=== PATIENT | female | born 1970 | race Caucasian/White ===

== ENCOUNTER 2017-03-19 21:09 | Inpatient (IN) | payer BC ==
[~2017-03-19] VITALS: Ht 172.7 cm; Wt 71.7 kg
[2017-03-19 23:12] LABS: PLATELET COUNT 393 x10^3mcL (130-400); RED CELL DISTRIBUTION WIDTH 13.1 % (11.5-14.5)
[2017-03-19 23:15] LABS: CALCIUM 8.6 mg/dL (8.5-10.1); CARBON DIOXIDE 24.3 mmol/L (21-32); CHLORIDE SERUM 103 mmol/L (98-107); CREATININE SERUM 0.9 mg/dL (0.6-1.0); GFR1 > 60 mL/min; GLUCOSE SERUM 127 mg/dL (74-106); POTASSIUM SERUM 3.8 mmol/L (3.5-5.1); SODIUM SERUM 138 mmol/L (136-145)
[2017-03-19 23:21] LABS: ALBUMIN 3.8 g/dL (3.4-5.0); ALKALINE PHOSPHATASE 58 U/L (46-116); ALT/SGPT 15 U/L (14-59); AST/SGOT 12 U/L (15-37); BILIRUBIN TOTAL 0.6 mg/dL (0.20-1.00); TOTAL PROTEIN, SERUM 7.8 g/dL (6.4-8.2)
[2017-03-20] LABS: BAND NEUTROPHIL 11 % (0-10); BASOPHIL 0 % (0-2); MONOCYTE 3 % (0-7); SEGMENTED NEUTROPHILS 83 % (37-75); rbc morphology (normal/abnorm) NORMAL (NORMAL)
[2017-03-20 00:03] LABS: PLATELET MORPHOLOGY PLATELETS NORMAL
[2017-03-20] MEDS ORDERED: ADV250/50 INH (02:55)
[2017-03-20] MEDS ORDERED: ORTHO TRI-CYCL1 EACH PO (02:55)
[2017-03-20 04:50] VITALS: BP 107/67
[2017-03-20 05:11] LABS: MAGNESIUM 1.8 mg/dL (1.8-2.4); PHOSPHOROUS 1.5 mg/dL (2.5-4.9)
[2017-03-20 05:15] LABS: T3 TOTAL 1.63 ng/mL
[2017-03-20 05:23] LABS: FREE T4 0.98 ng/dL (0.76-1.46); FREE THYROXINE INDEX 3.3 ug/dL (1.4-4.5); T4(THYROXINE) 11.3 ug/dL (4.7-13.3)
[2017-03-20 07:42] LABS: UA SPECIFIC GRAVITY 1.025 (1.005-1.035); microscopic required? YES; urine erythrocyte NEGATIVE (NEGATIVE)
[2017-03-20 08:10] LABS: PLATELET COUNT 336 x10^3mcL (130-400); RED CELL DISTRIBUTION WIDTH 13.4 % (11.5-14.5)
[2017-03-20 08:41] LABS: BAND NEUTROPHIL 2 % (0-10); MONOCYTE 2 % (0-7); SEGMENTED NEUTROPHILS 94 % (37-75)
[2017-03-20 08:42] LABS: rbc morphology (normal/abnorm) NORMAL (NORMAL)
[2017-03-20 08:57] LABS: CALCIUM 7.5 mg/dL (8.5-10.1); CARBON DIOXIDE 21.4 mmol/L (21-32); CHLORIDE SERUM 112 mmol/L (98-107); CREATININE SERUM 0.8 mg/dL (0.6-1.0); GFR1 > 60 mL/min; GLUCOSE SERUM 107 mg/dL (74-106); PHOSPHOROUS 1.9 mg/dL (2.5-4.9); POTASSIUM SERUM 4.1 mmol/L (3.5-5.1); SODIUM SERUM 147 mmol/L (136-145)
[2017-03-20 09:28] VITALS: BP 126/69
[2017-03-20 09:57] LABS: AMPHETAMINE QUAL UR NONE DETECTED (NEG <=1000)
[2017-03-20 13:26] VITALS: BP 114/74
[2017-03-20 17:41] VITALS: BP 111/74
[2017-03-20 22:15] VITALS: BP 107/71
[2017-03-21 07:06] VITALS: BP 104/65
[2017-03-21 08:48] LABS: BASOPHIL % 0.3 % (0-2); PLATELET COUNT 280 x10^3mcL (130-400); RED CELL DISTRIBUTION WIDTH 13.4 % (11.5-14.5)
[2017-03-21 08:59] LABS: CALCIUM 7.4 mg/dL (8.5-10.1); CARBON DIOXIDE 26.2 mmol/L (21-32); CHLORIDE SERUM 108 mmol/L (98-107); CREATININE SERUM 0.6 mg/dL (0.6-1.0); GFR1 > 60 mL/min; GLUCOSE SERUM 105 mg/dL (74-106); PHOSPHOROUS 1.7 mg/dL (2.5-4.9); POTASSIUM SERUM 3.2 mmol/L (3.5-5.1); SODIUM SERUM 141 mmol/L (136-145)
[2017-03-21 10:55] VITALS: BP 112/81
[2017-03-21 16:50] VITALS: Ht 172.7 cm; Wt 71.7 kg
[2017-03-21 18:13] VITALS: BP 120/83
[2017-03-21 20:42] VITALS: BP 106/69
[2017-03-22 05:20] VITALS: BP 117/77
[2017-03-22 06:22] LABS: BASOPHIL % 0.3 % (0-2); PLATELET COUNT 314 x10^3mcL (130-400); RED CELL DISTRIBUTION WIDTH 13.8 % (11.5-14.5)
[2017-03-22 06:40] LABS: CALCIUM 8.2 mg/dL (8.5-10.1); CARBON DIOXIDE 25.5 mmol/L (21-32); CHLORIDE SERUM 112 mmol/L (98-107); CREATININE SERUM 0.7 mg/dL (0.6-1.0); GFR1 > 60 mL/min; GLUCOSE SERUM 107 mg/dL (74-106); PHOSPHOROUS 2.3 mg/dL (2.5-4.9); POTASSIUM SERUM 4.5 mmol/L (3.5-5.1); SODIUM SERUM 146 mmol/L (136-145)
[2017-03-22 09:00] VITALS: BP 117/75
[2017-03-22 10:34] VITALS: BP 117/75
== END 2017-03-22 11:17 | disposition home or self-care (01) | DRG 871 ==
LOC: ED 21:09 → DU 03-20 03:36
PROVIDERS: Specialist; ADMIT Family Medicine
DX: A41.9 Sepsis, unspecified organism (principal); N17.0 Acute kidney failure with tubular necrosis; E87.0 Hyperosmolality and hypernatremia; R65.20 Severe sepsis without septic shock; K52.9 Noninfective gastroenteritis and colitis, unspecified; K57.90 Diverticulosis of intestine, part unspecified, without perforation or abscess without bleeding; J45.909 Unspecified asthma, uncomplicated; E78.5 Hyperlipidemia, unspecified; E83.39 Other disorders of phosphorus metabolism
CPT/HCPCS: 83880; 84439; 87046; 87046-59; 94150; C9113; J1885; J1956; J2405; J3010; J3490; J7030; Q9967

== ENCOUNTER 2017-09-17 19:02 | Inpatient (IN) | payer BC ==
[~2017-09-17] VITALS: Ht 172.7 cm; Wt 68.9 kg
[~2017-09-17 19:02] MED LIST: ADV250/50 INH; ORTHO TRI-CYCL1 EACH PO
[2017-09-17 19:45] VITALS: Ht 172.7 cm; Wt 68.9 kg
[2017-09-17 20:39] LABS: BASOPHIL % 0.7 % (0-2); PLATELET COUNT 297 x10^3mcL (130-400); RED CELL DISTRIBUTION WIDTH 12.9 % (11.5-14.5)
[2017-09-17 20:49] LABS: CALCIUM 8.6 mg/dL (8.5-10.1); CARBON DIOXIDE 24.2 mmol/L (21-32); CHLORIDE SERUM 105 mmol/L (98-107); CREATININE SERUM 0.6 mg/dL (0.6-1.0); GFR1 > 60 mL/min; GLUCOSE SERUM 115 mg/dL (74-106); POTASSIUM SERUM 3.3 mmol/L (3.5-5.1); SODIUM SERUM 140 mmol/L (136-145)
[2017-09-17 20:54] LABS: ALBUMIN 3.2 g/dL (3.4-5.0); ALKALINE PHOSPHATASE 58 U/L (46-116); ALT/SGPT 28 U/L (14-59); AST/SGOT 18 U/L (15-37); BILIRUBIN TOTAL 0.56 mg/dL (0.20-1.00); LIPASE 769 IU/L (73-393); TOTAL PROTEIN, SERUM 7.2 g/dL (6.4-8.2)
[2017-09-17] MEDS ORDERED: NIC14 TD (21:41)
[2017-09-17 21:51] LABS: microscopic required? NO
[2017-09-17 22:02] LABS: UA SPECIFIC GRAVITY 1.015 (1.005-1.035); urine erythrocyte NEGATIVE (NEGATIVE)
[2017-09-17 22:34] LABS: PHOSPHOROUS 1.7 mg/dL (2.5-4.9)
[2017-09-17 22:38] LABS: T3 TOTAL 2.56 ng/mL
[2017-09-17 22:44] LABS: CHOLESTEROL/HDL RATIO 2.6
[2017-09-17 22:46] LABS: FREE T4 1.12 ng/dL (0.76-1.46); FREE THYROXINE INDEX 3.3 ug/dL (1.4-4.5); T4(THYROXINE) 13.2 ug/dL (4.7-13.3)
[2017-09-17 23:27] VITALS: BP 125/82
[2017-09-18 03:01] LABS: AMPHETAMINE QUAL UR NONE DETECTED (NEG <=1000)
[2017-09-18 05:05] VITALS: BP 120/82
[2017-09-18 06:15] LABS: BASOPHIL % 0.4 % (0-2); PLATELET COUNT 281 x10^3mcL (130-400); RED CELL DISTRIBUTION WIDTH 13.1 % (11.5-14.5)
[2017-09-18 06:30] LABS: CALCIUM 7.9 mg/dL (8.5-10.1); CHLORIDE SERUM 108 mmol/L (98-107); CREATININE SERUM 0.6 mg/dL (0.6-1.0); GFR1 > 60 mL/min; GLUCOSE SERUM 90 mg/dL (74-106); MAGNESIUM 1.9 mg/dL (1.8-2.4); PHOSPHOROUS 3.2 mg/dL (2.5-4.9); POTASSIUM SERUM 3.5 mmol/L (3.5-5.1); SODIUM SERUM 143 mmol/L (136-145)
[2017-09-18 09:54] VITALS: BP 117/80
[2017-09-18 09:58] VITALS: BP 120/82
[2017-09-18 17:34] VITALS: BP 132/82
[2017-09-18 21:48] VITALS: BP 121/78
[2017-09-19 05:14] VITALS: BP 118/80
[2017-09-19 07:44] LABS: CALCIUM 7.5 mg/dL (8.5-10.1); CARBON DIOXIDE 25.6 mmol/L (21-32); CHLORIDE SERUM 107 mmol/L (98-107); CREATININE SERUM 0.6 mg/dL (0.6-1.0); GFR1 > 60 mL/min; GLUCOSE SERUM 91 mg/dL (74-106); PHOSPHOROUS 2.2 mg/dL (2.5-4.9); POTASSIUM SERUM 3.3 mmol/L (3.5-5.1); SODIUM SERUM 141 mmol/L (136-145)
[2017-09-19 07:49] LABS: BASOPHIL % 0.5 % (0-2); PLATELET COUNT 285 x10^3mcL (130-400); RED CELL DISTRIBUTION WIDTH 13.1 % (11.5-14.5)
[2017-09-19 10:20] VITALS: BP 113/79
[2017-09-19 11:25] VITALS: BP 113/79
[2017-09-19] MEDS ORDERED: NORCO1 TA2 PO (11:59)
[2017-09-19 17:56] VITALS: BP 123/80
== END 2017-09-19 20:40 | disposition home or self-care (01) | DRG 439 ==
LOC: ED 19:02 → DU 21:39 → MU 21:39 → DU 23:17 → MU 09-18 08:15
PROVIDERS: Emergency Medicine; Family Medicine
DX: K85.90 Acute pancreatitis without necrosis or infection, unspecified (principal); E44.0 Moderate protein-calorie malnutrition; R73.03 Prediabetes; E87.6 Hypokalemia; E02 Subclinical iodine-deficiency hypothyroidism; E83.39 Other disorders of phosphorus metabolism; J45.909 Unspecified asthma, uncomplicated; Z68.22 Body mass index [BMI] 22.0-22.9, adult; F17.210 Nicotine dependence, cigarettes, uncomplicated; K21.9 Gastro-esophageal reflux disease without esophagitis; Z85.3 Personal history of malignant neoplasm of breast; J06.9 Acute upper respiratory infection, unspecified; K57.90 Diverticulosis of intestine, part unspecified, without perforation or abscess without bleeding
CPT/HCPCS: 83880; 84439; 87804; J2270; J2405; J7030; J7512; Q0163; Q9967